=== PATIENT | female | born 1970 | race Caucasian/White ===

== ENCOUNTER → 2018-02-05 | Outpatient (CLI) | payer MEDICAID ==
--- NOTE | 2018-02-05 22:25 | CT ---
EXAMINATION TYPE: CT soft tissue neck w con DATE OF EXAM: 02/05/2018 COMPARISON: NONE HISTORY: Left sided neck mass marked by BB x [address] DLP: 762 mGycm CONTRAST: Patient injected with 100 mL of Isovue M300. TECHNIQUE: Axial images at 3 mm thick sections. Reconstructed images in the coronal plane and sagitt al plane are reviewed. FINDINGS: Limited CT sections are obtained the lung apices. The lung apices appear clear. CT neck: The torus tubarius and fossa of Rosenmuller are normal. Coding Support Specialist spaces are normal. Para nasal sinuses and mastoid air cells are clear. Inferior to the left parotid gland at the level marked by the BB there is a large hypodense area mario uring 15 Hounsfield units and 2.7 cm in diameter. Second branchial cleft cyst is favored. This could be a large necrotic lymph node although the internal murrieta are not irregular as typically expected. This cystlike area is lateral to the submandibular gland. Submandibular glands, are normal. Parapharyngeal spaces are normal. There is a 1.0 cm jugulodigastric lymph node on the right. Couple small submandibular lymph nodes are anterior to the submandibular glands. The hypopharynx appears within normal limits. Vocal cord level appear symmetrical. Thyroid as visualized is normal. Subglottic airway is unremarkable Osseous structures are normal. IMPRESSIONS: 1. Large hypodense mass marked by the BB most likely Second Branchial cleft cyst. This is inferior to the parotid gland and lateral and posterior to the submandibular gland. Necrotic lymph node could be considered. Given the close proximity to the jugular vein and near the carotid bifurcation additiona l evaluation with ultrasound is recommended to evaluate vascularity in this region. Paraganglioma, ho wever is felt to be unlikely.
== END | disposition home or self-care (01) ==
LOC: RADCTMAIN 14:50
PROVIDERS: ATTEND Otolaryngology
DX: R22.1 Localized swelling, mass and lump, neck (principal); I89.8 Other specified noninfective disorders of lymphatic vessels and lymph nodes
CPT/HCPCS: 70491; Q9967

== ENCOUNTER 2018-03-10 08:11 | Day surgery (SDC) | payer MEDICAID ==
[2018-03-02 10:46] VITALS: BMI 31.1
[~2018-03-10 08:11] MED LIST: DEXAMETHASONE SOD PHOSPHATE 10 MG/ML 1 ML VIAL IV ONE; DEXAMETHASONE SOD PHOSPHATE 4 MG/ML 1 ML VIAL IV ONE; FAMOTIDINE 20 MG/2 ML VIAL IV ONE; LACTATED RINGERS 1,000 ML IV SCH; MIDAZOLAM 2 MG/2 ML VIAL IV PRN; ONDANSETRON 4 MG/2 ML VIAL IVP ONE; SCOPOLAMINE 1.5MG/72HR PATCH TRANSDERM ONE; ceFAZolin 1,000 MG in DEXTROSE/WATER 1 50ML.BAG IV ONE; fentaNYL (PF) 50 MCG/ML 2 ML AMP IV PRN
[2018-03-10] MEDS ORDERED: LIDOCAINE 1% 20 ML VIAL (10MG/ML) FOR IV START INTRADERMA ONE (08:50)
[2018-03-10] MEDS ORDERED: LACTATED RINGERS 1,000 ML IV ONE (08:50)
[2018-03-10] MEDS ORDERED: PROPOFOL 10 MG/ML 20 ML VIAL IV ONE (09:43)
[2018-03-10] MEDS ORDERED: SUCCINYLCHOLINE CHLORIDE 100 MG/5 ML SYR IV ONE (09:43)
[2018-03-10] MEDS ORDERED: SODIUM CHLORIDE 0.9% 50 ML with ceFAZolin 1,000 MG IV ONE ×2 (09:43)
[2018-03-10] MEDS ORDERED: fentaNYL (PF) 50 MCG/ML 2 ML AMP ONE (09:43)
[2018-03-10] MEDS ORDERED: PHENYLEPHRINE-0.9% NACL SYG 1 MG/10 ML SYRINGE ONE (09:43)
[2018-03-10] MEDS ORDERED: LIDOCAINE 1% INJ 10MG/ML (20 ML MDV) ONE (09:43)
[2018-03-10] MEDS ORDERED: LIDOCAINE 1%-EPI 1:100,000 20 ML VIAL SQ ONE ×2 (10:03)
[2018-03-10 11:31] VITALS: TEMP 97.1
[2018-03-10 11:33] VITALS: RESP 18
[2018-03-10 11:49] VITALS: PULSE 70
[2018-03-10] MEDS ORDERED: IV FLUID CONTINUATION 1,000 ML IV ONE (11:54)
[2018-03-10 12:37] VITALS: BP 137/75
[2018-03-10] MEDS ORDERED: HYDROcodone/APAP 5-325MG 1 EACH TAB PO ONE (12:39)
--- NOTE | 2018-03-29 13:07 | OP ---
OPERATIVE REPORT DATE OF SURGERY: 03/10/2018 PREOPERATIVE DIAGNOSIS: Left second branchial cleft cyst. POSTOPERATIVE DIAGNOSIS: Same. PROCEDURE: Excision left branchial cleft cyst. ANESTHESIA: General. ESTIMATED BLOOD LOSS: Minimal. Less than 5 mL. COMPLICATIONS: None. INDICATIONS: This is a 47-year-old white female who has a left neck mass. CT scan indicated a cystic mass. Fine-needle aspiration showed acute inflammatory cells, superficial squamous cells, macrophages and keratin debris consistent with inflamed cyst contacts versus abscess. OPERATIVE FINDINGS: Cyst left upper neck anterior to sternocleidomastoid muscle, superficial to the jugular vein, and consistent grossly with a branchial cleft cyst. PROCEDURE DESCRIPTION: The patient is brought to the operative suite and placed in a supine position. Patient underwent inductive general anesthesia with oral endotracheal intubation without difficulty. The patient is prepped and draped in usual aseptic fashion. A transverse left upper neck cervical incision was made two fingerbreadths below the mandible through the skin, subcutaneous tissue and platysma layer. The mass was identified deep to the platysma layer. The mass was then dissected from the sternocleidomastoid muscle with the greater auricular nerve preserved. Dissection continued then around the mass from lateral to medial. The mass was quite large and therefore the cyst was aspirated in a controlled fashion in order to decompress this in order to better visualize the medial aspect of the dissection. The dissection then continued with identification of the spinal accessory nerve. Marginal mandibular branch of the facial nerve and hypoglossal nerves all preserved. Dissection then continued from lateral to medial and at the medial most portion, this was dissected from the underlying internal jugular vein. This ended in the blind end with no brachial cleft sinus identified. Once the cyst was then dissected from the surrounding tissue grossly entirely and removed. Hemostasis was noted to be excellent. The wound was copiously irrigated with sterile normal saline and good hemostasis noted. The platysma and subcutaneous layers were closed with inverted interrupted 3-0 and 4-0 Vicryl suture respectively and the skin closed with a running locking 5-0 Prolene suture. Bacitracin ointment and a sterile dressing were placed. The patient was then allowed to emerge from general anesthesia and tolerated procedure well. She was extubated in the operative suite, transferred to postop recovery area in satisfactory condition. MMODL / IJN: [id number] /
== END 2018-03-10 13:30 | disposition home or self-care (01) ==
LOC: OR 08:11
PROVIDERS: ATTEND Otolaryngology
DX: Q18.0 Sinus, fistula and cyst of branchial cleft (principal); K21.9 Gastro-esophageal reflux disease without esophagitis; F17.210 Nicotine dependence, cigarettes, uncomplicated; Z79.1 Long term (current) use of non-steroidal anti-inflammatories (NSAID); Z98.51 Tubal ligation status
CPT/HCPCS: 81025; 88305; 42815; J1100; J2405; J2001; J3010; J0690; J2370; J0330; J2704

== ENCOUNTER → 2019-10-07 | Outpatient (CLI) | payer MEDICAID ==
[2019-10-07 07:09] LABS: HCT 43.9 % (34.0-46.0); HGB 14.2 gm/dL (11.4-16.0); MCH 29.6 pg (25.0-35.0); MCHC 32.4 g/dL (31.0-37.0); MCV 91.3 fL (80.0-100.0); Mean Platelet Volume 7.7; Platelet Count 550 k/uL (150-450); RBC 4.81 m/uL (3.80-5.40); RDW 12.8 % (11.5-15.5); WBC 10.4 k/uL (3.8-10.6)
[2019-10-07 11:28] LABS: African American GFR (CKD) 100.3 (60.0-200.0); Albumin/Globulin Ratio 1.9 (1.60-3.17); Anion Gap 6.5 mmol/L (4.00-12.00); Carbon Dioxide 26.5 mmol/L (21.6-31.8); Chol/HDL Ratio 5.1; Globulin 2.1 g/dL (1.6-3.3); LDL Cholesterol,Calculated 135.4 mg/dL (0.0-131.0); Non-African American GFR(CKD) 86.6 (60.0-200.0); Potassium 4.5 mmol/L (3.5-5.5); Total Bilirubin 0.5 mg/dL (0.2-1.2); Total Protein 6.1 g/dL (6.2-8.2); VLDL Calculation 61.6 mg/dL (5.00-40.00)
== END | disposition home or self-care (01) ==
LOC: LABMAIN 06:02
PROVIDERS: ATTEND Family Medicine
DX: I10 Essential (primary) hypertension (principal); R53.83 Other fatigue; E78.00 Pure hypercholesterolemia, unspecified; R73.01 Impaired fasting glucose
CPT/HCPCS: 36415; 80053; 80061; 83036; 84443; 85027

== ENCOUNTER → 2020-05-18 | Outpatient (CLI) | payer MEDICAID ==
[2020-05-18 09:06] LABS: HCT 43.9 % (34.0-46.0); HGB 14.1 gm/dL (11.4-16.0); MCH 28.9 pg (25.0-35.0); MCHC 32.2 g/dL (31.0-37.0); MCV 89.9 fL (80.0-100.0); Mean Platelet Volume 7.8; Platelet Count 578 k/uL (150-450); RBC 4.89 m/uL (3.80-5.40); RDW 12.8 % (11.5-15.5); WBC 12.6 k/uL (3.8-10.6)
[2020-05-18 16:56] LABS: Hemoglobin A1C 6.2 % (4.0-6.0)
[2020-05-18 18:32] LABS: African American GFR (CKD) 99.6 (60.0-200.0); Albumin 4.1 g/dL (3.80-4.90); Albumin/Globulin Ratio 2.16 (1.60-3.17); Anion Gap 9.1 mmol/L (4.00-12.00); BUN/Creat Ratio 18.75 Ratio (12.00-20.00); Calcium 9.9 mg/dL (8.7-10.3); Carbon Dioxide 22.9 mmol/L (21.6-31.8); Chol/HDL Ratio 5.6; Globulin 1.9 g/dL (1.6-3.3); LDL Cholesterol,Calculated 165.8 mg/dL (0.0-131.0); Potassium 4.6 mmol/L (3.5-5.5); Total Bilirubin 0.2 mg/dL (0.2-1.2); VLDL Calculation 50.2 mg/dL (5.00-40.00)
== END | disposition home or self-care (01) ==
LOC: LABMAIN 06:22
PROVIDERS: ATTEND Family Medicine
DX: I10 Essential (primary) hypertension (principal); E78.5 Hyperlipidemia, unspecified; R73.09 Other abnormal glucose
CPT/HCPCS: 36415; 80053; 80061; 83036; 85027

== ENCOUNTER → 2020-10-19 | Outpatient (CLI) | payer MEDICAID ==
[2020-10-19 11:25] LABS: HCT 41.8 % (37.2-46.3); HGB 13.7 g/dL (12.0-15.0); MCH 29.8 pg (27.0-32.0); MCHC 32.8 g/dL (32.0-37.0); MCV 91.1 fL (80.0-97.0); Mean Platelet Volume 9.4 fL (9.5-12.2); Platelet Count 537 X 10*3/uL (140-440); RBC 4.59 X 10*6/uL (4.10-5.20); RDW 13.2 % (11.5-14.5); WBC 8.34 X 10*3/uL (4.50-10.00)
[2020-10-19 12:30] LABS: African American GFR (CKD) 76.1 (60.0-200.0); Albumin 4.5 g/dL (3.80-4.90); Albumin/Globulin Ratio 2.14 (1.60-3.17); Anion Gap 5.9 mmol/L (4.00-12.00); Calcium 10.2 mg/dL (8.7-10.3); Carbon Dioxide 26.1 mmol/L (21.6-31.8); Chol/HDL Ratio 3.62; Globulin 2.1 g/dL (1.6-3.3); LDL Cholesterol,Calculated 84.2 mg/dL (0.0-131.0); Non-African American GFR(CKD) 65.6 (60.0-200.0); Potassium 4.9 mmol/L (3.5-5.5); Total Bilirubin 0.3 mg/dL (0.3-1.2); Total Protein 6.6 g/dL (6.2-8.2); VLDL Calculation 33.8 mg/dL (5.00-40.00)
== END | disposition home or self-care (01) ==
LOC: LABWHC1 07:27
PROVIDERS: ATTEND Family Medicine
DX: I10 Essential (primary) hypertension (principal); E78.5 Hyperlipidemia, unspecified; R73.09 Other abnormal glucose
CPT/HCPCS: 36415; 80053; 80061; 83036; 84443; 85027

== ENCOUNTER → 2021-04-09 | Outpatient (CLI) | payer MEDICAID ==
[2021-04-09 11:12] LABS: HGB 13.4 g/dL (12.0-15.0); MCH 29.6 pg (27.0-32.0); MCHC 31.2 g/dL (32.0-37.0); MCV 94.9 fL (80.0-97.0); Mean Platelet Volume 9.8 fL (9.5-12.2); Platelet Count 604 X 10*3/uL (140-440); RBC 4.53 X 10*6/uL (4.10-5.20); RDW 13.1 % (11.5-14.5); WBC 11.21 X 10*3/uL (4.50-10.00)
[2021-04-09 14:03] LABS: African American GFR (CKD) 98.9 (60.0-200.0); Albumin 3.9 g/dL (3.80-4.90); Albumin/Globulin Ratio 1.63 (1.60-3.17); Anion Gap 5.1 mmol/L (4.00-12.00); BUN/Creat Ratio 22.5 Ratio (12.00-20.00); Calcium 9.6 mg/dL (8.7-10.3); Carbon Dioxide 26.9 mmol/L (21.6-31.8); Chol/HDL Ratio 4.35; Globulin 2.4 g/dL (1.6-3.3); LDL Cholesterol,Calculated 105.4 mg/dL (0.0-131.0); Non-African American GFR(CKD) 85.4 (60.0-200.0); Potassium 4.6 mmol/L (3.5-5.5); Total Bilirubin 0.2 mg/dL (0.2-1.2); Total Protein 6.3 g/dL (6.2-8.2); VLDL Calculation 58.6 mg/dL (5.00-40.00)
[2021-04-09 14:21] LABS: Hemoglobin A1C 6.1 % (4.0-6.0)
== END | disposition home or self-care (01) ==
LOC: LABWHC1 07:08
PROVIDERS: ATTEND Family Medicine
DX: Z20.822 Contact with and (suspected) exposure to COVID-19 (principal); E78.5 Hyperlipidemia, unspecified; I10 Essential (primary) hypertension; H40.10X0 Unspecified open-angle glaucoma, stage unspecified
CPT/HCPCS: 36415; 80053; 80061; 83036; 84443; 85027; 86769

== ENCOUNTER → 2022-08-21 | Outpatient (CLI) | payer MEDICAID ==
--- NOTE | 2022-08-21 16:25 | US ---
EXAMINATION TYPE: US pelvic complete DATE OF EXAM: 08/21/2022 COMPARISON: NONE CLINICAL HISTORY: [id number] LEFT OVARIAN CYST. Left ovarian cyst. TECHNIQUE: Transabdominal (TA). Transabdominal sonographic images of the pelvis were acquired. EXAM MEASUREMENTS: Uterus: 11.2 x 9.6 x 12 cm Endometrial Stripe: Not seen due to fibroids. Right Ovary: Obscured by bowel gas. Left Ovary: 1.5 x 1.2 x 1.5 cm 1. Uterus: Enlarged heterogenous multiple fibroids seen largest 9.1 x 8.1 x 7.6 cm. 2. Endometrium: Obscured 3. Right Ovary: Obscured by overlying bowel gas 4. Left Ovary: wnl 5. Bilateral Adnexa: wnl 6. Posterior cul-de-sac: wnl Prominent enlarged lobulated uterus felt to reflect underlying fibroids is redemonstrated. Endometria l stripe not distinctly seen. No free fluid. No suspicious adnexal masses noted on today's study. IMPRESSION: Fibroid type uterus redemonstrated. Left ovary is small in size without concerning solid or cystic mass on current exam.
--- NOTE | 2022-08-21 18:37 | BD ---
EXAMINATION TYPE: Axial Bone Density DATE OF EXAM: 08/21/2022 COMPARISON: NONE CLINICAL HISTORY: 51 years year old Female. ICD-10 CODE: N951 POST SHILPA SYMPTOMS Height: 63.75 Weight: 194 FRAX RISK QUESTIONS: Alcohol (3 or more units per day): NO Family History (Parent hip fracture): NO Glucocorticoids (More than 3mos): NO History of Fracture in Adulthood: NO Secondary Osteoporosis: 1. Type 1 Diabetes: NO 2. Hyperthyroidism: NO 3. Menopause before 45: YES 4. Malnutrition: NO 5. Chronic liver disease: NO Rheumatoid Arthritis: NO Current Tobacco Use: YES RISK FACTORS HISTORY OF: Hip Fracture (Right/Left): NO Spine Fracture: NO History of Wrist Fracture: NO Surgery to Spine/Hip(right/left)/Wrist (right/left): NO Family History of Osteoporosis: NO Active: YES Diet low in dairy products/other sources of calcium: NO Postmenopausal woman: YES Take estrogen and/or progesterone medications: NO Lost more than 2 inches in height since high school: NO Frequent falls: NO Poor Health: NO Hyperparathyroidism: NO Adrenal Insufficiency: NO MEDICATIONS: Prednisone or other steroids: NO Thyroid Medications: NO Osteoporosis Medications: NO Additional Medications: BP MEDS, CHOLESTEROL MEDS, B12, POTASSIUM EXAM MEASUREMENTS: Bone mineral densitometry was performed using the [employer]. Bone mineral density as measured about the Lumbar spine is: ----- L1-L4(G/cm2): 1.015 T Score Values are as follows: ----- L1: -0.8 ----- L2: -1.7 ----- L3: -1.8 ----- L4: -1.3 ----- L1-L4: -1.4 BASELINE STUDY Bone mineral density about the R hip (g/cm2): 0.789 Bone mineral density about the L hip (g/cm2): 0.757 T Score values are as follows: -----R Neck: -1.8 -----L Neck: -2.0 -----R Total: -0.8 -----L Total: -0.9 BASELINE STUDY FRAX%s: The graph provided illustrates a 6.6% chance for a major osteoporotic fx and a 1.4% chance fo r the hips probability for fx in 10 years time. IMPRESSION: Osteopenia (T Score between -2.5 and -1). There is slightly increased risk of fracture and the patient may be considered for treatment. Re-Screen 2-5 years. NOTE: T-SCORE=SD OF THE YOUNG ADULT MEAN.
--- NOTE | 2022-08-22 09:37 | MM ---
Reason for Exam: Screening (asymptomatic). Last mammogram was performed 9 year(s) and 1 month(s) ago. Patient History: Menarche at age 12. First Full-Term at age 20. Right ovary removed at age 31. Postmenopausal. Maternal grandmother had breast cancer, age 70. Risk Values: Reshma 5 year model risk: 0.9%. NCI Lifetime model risk: 7.8%. Prior Study Comparison: 07/10/2010 Bilateral Screening Mammogram, [facility]. 07/07/2012 Bilateral Screening Mammogram, [facility]. 07/15/2013 Bilateral Screening Mammogram, [facility]. Tissue Density: There are scattered fibroglandular densities. Findings: Analyzed By CAD. Benign-appearing bilateral axillary lymph nodes are seen. There is no suspicious group of microcalcifications or new suspicious mass in either breast. Overall Assessment: Negative, BI-RAD 1 Management: Screening Mammogram of both breasts in 1 year. A clinical breast exam by your physician is recommended on an annual basis and results should be correlated with mammographic findings. Electronically signed and approved by: José Miguel Guadalupe M.D.
== END | disposition home or self-care (01) ==
LOC: RADMAMWWP 14:55
PROVIDERS: ATTEND Obstetrics & Gynecology
DX: Z12.31 Encounter for screening mammogram for malignant neoplasm of breast (principal); D25.9 Leiomyoma of uterus, unspecified; N83.202 Unspecified ovarian cyst, left side; N95.0 Postmenopausal bleeding; Z78.0 Asymptomatic menopausal state; Z80.3 Family history of malignant neoplasm of breast; Z13.820 Encounter for screening for osteoporosis; M85.89 Other specified disorders of bone density and structure, multiple sites
CPT/HCPCS: 76856; 77067; 77080